=== PATIENT | female | born 1970 | race American Indian/Alaskan Native ===

== ENCOUNTER 2017-05-19 15:13 | Emergency (ER) | payer BC ==
[2017-05-19 15:28] VITALS: BMI 23.2
[2017-05-19] MEDS ORDERED: Albuterol-Ipratrop 3 mg / 0.5 (3 ml) UD IH STA (15:34)
[2017-05-19 15:39] VITALS: BP 113/66; PULSE 89; RESP 18; TEMP 97.9; O2SAT 100
--- NOTE | 2017-05-19 15:41 | ED PDOC ---
Arrival/HPI - General Chief Complaint: Shortness Of Breath Historian: Patient - History of Present Illness Narrative History of Present Illness (Text): 05/19/17 15:38 Pt is a 46 yo F with PMH of asthma and polycythemia vera presents to ED with 4 day history of shortness of breath. Pt states that she has not be able to afford a new albuterol inhaler and has been using an one. For the few days the albuterol inhaler had been somewhat controlling her symptoms. However, since last night patient has been shortness of breath with no relief despite using inhaler. Pt denies smoking, CP, n/v/d, abdominal pain, cough, fever, chills, SPANGLER, or dizziness. PMD: Russ Past Medical History - Provider Review Nursing Documentation Reviewed: Yes - Infectious Disease Hx of Infectious Diseases: None - Tetanus Immunization Tetanus Immunization: Unknown - Past Medical History Past Medical History: No Previous - Cardiac Hx Cardiac Disorders: No - Pulmonary Hx Asthma: Yes - Hematological/Oncological Other/Comment: Polycythemiavera - Psychiatric Hx Psychophysiologic Disorder: No Hx Anxiety: No Hx Bipolar Disorder: No Hx Depression: No Hx Emotional Abuse: No Hx Hallucinations: No Hx Panic Disorder: No Hx Post Traumatic Stress Disorder: No Hx Psychosis: No Hx Physical Abuse: No Hx Schizophrenia: No Hx Sexual Abuse: No Hx Substance Use: No - Past Surgical History Past Surgical History: No Previous - Anesthesia Hx Anesthesia: No Hx Anesthesia Reactions: No Hx Malignant Hyperthermia: No - Suicidal Assessment Feels Threatened In Home Enviroment: No Family/Social History - Physician Review Nursing Documentation Reviewed: Yes Family/Social History: No Known Family HX Smoking Status: Current Some Days Smoker Hx Alcohol Use: Yes Hx Substance Use: No Hx Substance Use Treatment: No Allergies/Home Meds Allergies/Adverse Reactions: Allergies aspirin Allergy (Verified 12/20/15 14:51) RASH Penicillins Allergy (Verified 12/20/15 14:51) RASH Home Medications: Home Meds Medication Instructions Recorded Confirmed Albuterol HFA [Ventolin HFA 90 0.09 mg IH PRN PRN 05/19/17 05/19/17 mcg/actuation (8 g)] Review of Systems - Physician Review All systems were reviewed & negative as marked: Yes - Review of Systems Constitutional: Normal. absent: Fatigue, Fevers Eyes: Normal ENT: Normal Respiratory: SOB, Wheezing. absent: Cough, Sputum Cardiovascular: Normal Gastrointestinal: Normal Genitourinary Female: Normal Musculoskeletal: Normal Skin: Normal Neurological: Normal Endocrine: Normal Hemo/Lymphatic: Normal Psychiatric: Normal Physical Exam Vital Signs Reviewed: Yes Vital Signs Temp Pulse Resp BP Pulse Ox 05/19/17 16:00 18 05/19/17 15:31 97.9 F 89 18 113/66 100 Temperature: Afebrile Blood Pressure: Normal Pulse: Tachycardic Respiratory Rate: Normal Appearance: Positive for: Non-Toxic Pain Distress: None Mental Status: Positive for: Alert and Oriented X 3 - Systems Exam Head: Present: Atraumatic, Normocephalic Extroacular Muscles: Present: EOMI Mouth: Present: Moist Mucous Membranes Nose (External): Present: Atraumatic Nose (Internal): Present: Normal Inspection Neck: Present: Normal Range of Motion Respiratory/Chest: Present: Wheezes (Left lower base). No: Respiratory Distress , Accessory Muscle Use, Rales, Rhonchi Cardiovascular: Present: Regular Rate and Rhythm, Normal S1, S2. No: Murmurs, Rub, Gallop Abdomen: No: Tenderness, Distention, Peritoneal Signs, Rebound, Guarding Back: Present: Normal Inspection Upper Extremity: Present: Normal Inspection Lower Extremity: Present: Normal Inspection Neurological: Present: GCS=15 Skin: Present: Warm, Dry, Normal Color Psychiatric: Present: Alert, Oriented x 3 Medical Decision Making ED Course and Treatment: 05/19/17 15:43 Assessment: 46 yo F presents to ED with shortness of breath 2/2 asthma. Plan: - CBC - CMP - Cardiac Iso - CXR - EKG - Duoneb - Prednisone EKG showed NSR, rate 96. 05/19/17 17:46 Workup unremarkable. Patient feels better after duoneb and prednisone. Advised patient to follow up with PMD upon discharge and to fill albuterol prescription from PMD and to take prednisone for 5 days daily. Impression: Asthma - Lab Interpretations Lab Results: 05/19/17 15:50 05/19/17 15:50 Lab Results 05/19/17 15:50: Sodium 141, Potassium 4.3, Chloride 103, Carbon Dioxide 25, Anion Gap 17, BUN 12, Creatinine 1.0, Est GFR ( Amer) > 60, Est GFR (Non- Af Amer) 60, Random Glucose 96, Calcium 9.9, Total Bilirubin 0.8, AST 56 H, ALT 29, Alkaline Phosphatase 48, Lactate Dehydrogenase 615, Total Creatine Kinase 50 , Troponin I < 0.01, Total Protein 7.3, Albumin 4.4, Globulin 3.0, Albumin/ Globulin Ratio 1.5 05/19/17 15:50: WBC 6.7, RBC 6.60 H, Hgb 14.1, Hct 45.7, MCV 69.2 L, MCH 21.4 L , MCHC 30.9 L, RDW 16.7 H, Plt Count 552 H, MPV 10.2, Gran % 59.3, Lymph % (Auto ) 26.0, Mcdowell % (Auto) 8.7 H, Eos % (Auto) 5.7 H, Baso % (Auto) 0.3, Gran # 3.98 , Lymph # (Auto) 1.7, Mcdowell # (Auto) 0.6, Eos # (Auto) 0.4, Baso # (Auto) 0.02 - RAD Interpretation Radiology Orders: 05/19/17 15:34 CXR [CHEST PORTABLE] [RAD] Stat - Medication Orders Current Medication Orders: Discontinued Medications Albuterol/Ipratropium (Duoneb 3 Mg/0.5 Mg (3 Ml) Ud) 3 ml IH STAT STA Stop: 05/19/17 15:35 Last Admin: 05/19/17 15:49 Dose: 3 ml Prednisone (Prednisone Tab) 40 mg PO STAT STA Stop: 05/19/17 15:35 Last Admin: 05/19/17 15:49 Dose: 40 mg Disposition/Present on Arrival - Present on Arrival Any Indicators Present on Arrival: Yes History of DVT/PE: No History of Uncontrolled Diabetes: No Urinary Catheter: No History Surgical Site Infection Following: None - Disposition Have Diagnosis and Disposition been Completed?: Yes Diagnosis: Asthma Disposition: HOME/ ROUTINE Disposition Time: 17:42 Patient Plan: Discharge Patient Problems: Current Active Problems Problem Status Onset Asthma Acute Condition: STABLE Discharge Instructions (ExitCare): Asthma, Adult (DC) Additional Instructions: 1. Follow up with PMD 2. Fill albuterol inhaler prescription and use as needed 3. Return to ED if symptoms worsen Prescriptions: Prednisone [Deltasone] 20 mg PO DAILY #5 tablet Referrals: Norah Solano MD [Primary Care Provider] - Follow up with primary Forms: [employer] (Romanian)
[2017-05-19 16:28] LABS: BASO # 0.02 K/mm3 (0.0-2.0); BASO % 0.3 % (0.0-3.0); EOS # 0.4 (0.0-0.7); EOS % 5.7 % (1.5-5.0); GRAN # 3.98 (1.4-6.5); GRAN % 59.3 % (50.0-68.0); HEMOGLOBIN 14.1 g/dL (12.0-16.0); LYMPH # 1.7 (1.2-3.4); MEAN CELL VOLUME 69.2 fl (80.0-105.0); MEAN CORPUSCULAR HEMOGLOBIN 21.4 pg (25.0-35.0); MEAN CORPUSCULAR HGB CONC 30.9 g/dl (31.0-37.0); MEAN PLATELET VOLUME 10.2 fl (7.0-11.0); MONO # 0.6 (0.1-0.6); MONO % 8.7 % (1.0-6.0); RBC 6.6 10^6/uL (3.5-6.1); RED CELL DISTRIBUTION WIDTH 16.7 % (11.5-14.5); WHITE BLOOD COUNT 6.7 10^3/ul (4.5-11.0)
[2017-05-19 16:39] LABS: ALB/GLOB RATIO 1.5 (1.1-1.8); ALBUMIN 4.4 g/dL (3.0-4.8); ALT/SGPT 29 U/L (7-56); AST/SGOT 56 U/L (14-36); BLOOD UREA NITROGEN 12 mg/dL (7-21); CALCIUM 9.9 mg/dL (8.4-10.5); GFR AFRICAN-AMERICAN > 60; GFR NON-AFRICAN AMERICAN 60
[2017-05-19 17:01] LABS: TROPONIN I < 0.01 ng/mL
--- NOTE | 2017-05-20 07:21 | RAD ---
HISTORY: dyspnea COMPARISON: No prior. FINDINGS: LUNGS: No active pulmonary disease. PLEURA: No significant pleural effusion identified, no pneumothorax apparent. CARDIOVASCULAR: Normal. OSSEOUS STRUCTURES: No significant abnormalities. VISUALIZED UPPER ABDOMEN: Normal. OTHER FINDINGS: None. IMPRESSION: No acute cardiopulmonary disease appreciated.
--- NOTE | 2017-05-20 12:35 | CARD ---
APPROVED REPORT EKG Measurement Heart [id number] <Conclusion> Normal sinus rhythm Normal ECG
== END 2017-05-19 18:06 | disposition home or self-care (01) ==
LOC: ED 15:13
DX: J45.909 Unspecified asthma, uncomplicated (principal); D45 Polycythemia vera; F17.210 Nicotine dependence, cigarettes, uncomplicated

== ENCOUNTER 2017-11-27 14:56 | Emergency (ER) | payer BC, MEDICAID ==
[2017-11-27 15:02] VITALS: BMI 23.0
[2017-11-27 15:21] VITALS: RESP 18; TEMP 98.1; O2SAT 98
[2017-11-27] MEDS ORDERED: Sodium Chloride 0.9% 1,000 ML IV STA (15:23)
[2017-11-27] MEDS ORDERED: Albuterol-Ipratrop 3 mg / 0.5 (3 ml) UD IH STA (15:23)
--- NOTE | 2017-11-27 15:27 | ED PDOC ---
Arrival/HPI - General Time Seen by Provider: 11/27/17 15:11 Historian: Patient - History of Present Illness Narrative History of Present Illness (Text): 11/27/17 15:26 47-year-old female with past medical history of polycythemia vera and asthma, works for the [employer], presents for heat exhaustion. 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 She adds that she felt like her asthma was about to come on however she did not have her inhaler with her. Reports feeling significantly better upon arrival to the emergency room due to the cooler temperature. Reports no fever, chills, headache, dizziness, shortness of breath, chest pain, nausea, vomiting, abdominal pain, recent travel, recent illness. Patient has no other complaints at this time. Past Medical History - Infectious Disease Hx of Infectious Diseases: None - Tetanus Immunization Tetanus Immunization: Unknown - Past Medical History Past Medical History: No Previous - Cardiac Hx Cardiac Disorders: No - Pulmonary Hx Asthma: Yes - Hematological/Oncological Other/Comment: Polycythemiavera - Psychiatric Hx Psychophysiologic Disorder: No Hx Anxiety: No Hx Bipolar Disorder: No Hx Depression: No Hx Emotional Abuse: No Hx Hallucinations: No Hx Panic Disorder: No Hx Post Traumatic Stress Disorder: No Hx Psychosis: No Hx Physical Abuse: No Hx Schizophrenia: No Hx Sexual Abuse: No Hx Substance Use: No - Past Surgical History Past Surgical History: No Previous - Anesthesia Hx Anesthesia: No Hx Anesthesia Reactions: No Hx Malignant Hyperthermia: No - Suicidal Assessment Feels Threatened In Home Enviroment: No Family/Social History Family/Social History: No Known Family HX Smoking Status: Current Some Days Smoker Hx Alcohol Use: Yes Hx Substance Use: No Hx Substance Use Treatment: No Allergies/Home Meds Allergies/Adverse Reactions: Allergies aspirin Allergy (Verified 11/27/17 15:19) RASH Penicillins Allergy (Verified 11/27/17 15:19) RASH Home Medications: Home Meds Medication Instructions Recorded Confirmed Albuterol HFA [Ventolin HFA 90 0.09 mg IH PRN PRN 05/19/17 11/27/17 mcg/actuation (8 g)] Review of Systems - Review of Systems Constitutional: Fatigue. absent: Weight Change, Fevers Respiratory: absent: SOB, Cough Cardiovascular: absent: Chest Pain, Palpitations Gastrointestinal: absent: Abdominal Pain, Diarrhea, Vomiting Genitourinary Female: absent: Dysuria, Frequency, Hematuria Musculoskeletal: absent: Arthralgias, Back Pain, Neck Pain Skin: absent: Rash, Pruritis, Skin Lesions Neurological: Dizziness. absent: Headache, Focal Weakness Physical Exam Vital Signs Temp Pulse Resp BP Pulse Ox 11/27/17 16:39 75 18 113/69 98 11/27/17 15:18 98.1 F 80 18 115/72 98 Temperature: Afebrile Blood Pressure: Normal Pulse: Regular Respiratory Rate: Normal Appearance: Positive for: Well-Appearing, Non-Toxic, Comfortable Pain Distress: None Mental Status: Positive for: Alert and Oriented X 3 - Systems Exam Head: Present: Atraumatic, Normocephalic Pupils: Present: PERRL Extroacular Muscles: Present: EOMI Conjunctiva: Present: Normal Mouth: Present: Dry Neck: Present: Normal Range of Motion Respiratory/Chest: Present: Clear to Auscultation, Good Air Exchange. No: Respiratory Distress, Accessory Muscle Use, Wheezes, Rales, Rhonchi Cardiovascular: Present: Regular Rate and Rhythm, Normal S1, S2. No: Murmurs, Tachycardic Abdomen: No: Tenderness, Distention, Peritoneal Signs Back: Present: Normal Inspection Upper Extremity: Present: Normal Inspection. No: Cyanosis, Edema Lower Extremity: Present: Normal Inspection. No: Edema Neurological: Present: GCS=15, CN II-XII Intact, Speech Normal, Motor Func Grossly Intact, Normal Sensory Function Skin: Present: Warm, Dry, Normal Color. No: Rashes Psychiatric: Present: Alert, Oriented x 3, Normal Insight, Normal Concentration Medical Decision Making ED Course and Treatment: 11/27/17 15:24 Plan: -- Labs -- IV fluids -- EKG -- Duoneb x1 -- Reassess and disposition EKG: NSR at 83 bpm, (-) acute ST changes, as read by PA. Labs reviewed K 3.4 Patient medicated with KCl 40 mEq po. On reevaluation, patient reports improvement of symptoms, denies any dizziness, CP, SOB or palpitations. On exam, patient remains awake alert and oriented 3 in no acute distress, she is in good spirits and is smiling. Cardiac regular rate and rhythm, abdomen soft and nontender, repeat neuro exam shows no focal findings. Based on history, exam and diagnostic results plan will be for outpatient follow up. Advised to follow up with primary care physician in 1-2 days without fail. Return to the emergency room at any time for any new or worsening symptoms. Patient states she fully agrees with and understands discharge instructions. States that she agrees with the plan and disposition. Verbalized and repeated discharge instructions and plan. I have given the patient opportunity to ask any additional questions. - Lab Interpretations Lab Results: 11/27/17 15:56 11/27/17 15:56 Lab Results 11/27/17 15:56: Sodium 144, Potassium 3.4 L, Chloride 109 H, Carbon Dioxide 22, Anion Gap 17, BUN 11, Creatinine 0.8, Est GFR ( Amer) > 60, Est GFR (Non- Af Amer) > 60, Random Glucose 66 L, Calcium 9.4, Total Bilirubin 0.6, AST 27, ALT 22, Alkaline Phosphatase 49, Total Protein 7.2, Albumin 4.5, Globulin 2.7, Albumin/Globulin Ratio 1.7 11/27/17 15:56: WBC 7.4, RBC 6.16 H, Hgb 13.0, Hct 41.9, MCV 68.0 L, MCH 21.1 L , MCHC 31.0, RDW 16.7 H, Plt Count 588 H, MPV 9.6, Gran % 68.5 H, Lymph % (Auto ) 22.8, [place] % (Auto) 6.6 H, Eos % (Auto) 1.8, Baso % (Auto) 0.3, Gran # 5.08, Lymph # (Auto) 1.7, [place] # (Auto) 0.5, Eos # (Auto) 0.1, Baso # (Auto) 0.02 - Medication Orders Current Medication Orders: Discontinued Medications Albuterol/Ipratropium (Duoneb 3 Mg/0.5 Mg (3 Ml) Ud) 3 ml IH STAT STA Stop: 11/27/17 15:24 Last Admin: 11/27/17 15:50 Dose: 3 ml Sodium Chloride (Sodium Chloride 0.9%) 1,000 mls @ 1,000 mls/hr IV .Q1H STA Stop: 11/27/17 16:22 Last Admin: 11/27/17 15:50 Dose: 1,000 mls/hr eMAR Start Stop Document 11/27/17 15:50 GMD (Rec: 11/27/17 15:50 GMD [id number]) Intravenous Solution Start Date 11/27/17 Start Time 15:50 End Date 11/27/17 End time 16:50 Total Infusion Time 60 Potassium Chloride (Potassium Chloride Oral Soln) 40 meq PO STAT STA Stop: 11/27/17 16:56 Last Admin: 11/27/17 17:05 Dose: 40 meq - 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 Disposition/Present on Arrival - Present on Arrival Any Indicators Present on Arrival: No History of DVT/PE: No History of Uncontrolled Diabetes: No Urinary Catheter: No History Surgical Site Infection Following: None - Disposition Have Diagnosis and Disposition been Completed?: Yes Diagnosis: Dehydration, Heat exhaustion Disposition: HOME/ ROUTINE Disposition Time: 17:00 Patient Plan: Discharge Condition: IMPROVED Discharge Instructions (ExitCare): Dehydration, Adult (DC), Heat Exhaustion and Heat Stroke (DC) Additional Instructions: Thank you for letting us take care of you today. You were treated for dehydration, heat exhaustion. The emergency medical care you received today was directed at your acute symptoms. Drink plenty of water, stay in cool areas, avoid being outside for too many hours in the heat. Return to the Emergency Department if your symptoms worsen, do not improve, or if you have any other problems. Please contact your doctor in 2 days for re-evaluation and follow up. Bring any paperwork you were given at discharge with you along with any medications you are taking to your follow up visit. Our treatment cannot replace ongoing medical care by a primary care provider (PCP) outside of the emergency department. Thank you for allowing the [facility] team to be part of your care today. Forms: WORK NOTE
[2017-11-27 16:00] LABS: BASO # 0.02 K/mm3 (0.0-2.0); BASO % 0.3 % (0.0-3.0); EOS # 0.1 (0.0-0.7); EOS % 1.8 % (1.5-5.0); GRAN # 5.08 (1.4-6.5); GRAN % 68.5 % (50.0-68.0); LYMPH # 1.7 (1.2-3.4); LYMPH % 22.8 % (22.0-35.0); MEAN CORPUSCULAR HEMOGLOBIN 21.1 pg (25.0-35.0); MEAN PLATELET VOLUME 9.6 fl (7.0-11.0); MONO # 0.5 (0.1-0.6); MONO % 6.6 % (1.0-6.0); RBC 6.16 10^6/uL (3.5-6.1); RED CELL DISTRIBUTION WIDTH 16.7 % (11.5-14.5); WHITE BLOOD COUNT 7.4 10^3/ul (4.5-11.0)
[2017-11-27 16:11] LABS: ALB/GLOB RATIO 1.7 (1.1-1.8); ALBUMIN 4.5 g/dL (3.0-4.8); ALT/SGPT 22 U/L (7-56); AST/SGOT 27 U/L (14-36); BLOOD UREA NITROGEN 11 mg/dL (7-21); CALCIUM 9.4 mg/dL (8.4-10.5); GFR NON-AFRICAN AMERICAN > 60
[2017-11-27 16:40] VITALS: BP 113/69; PULSE 75
[2017-11-27] MEDS ORDERED: Potassium Chloride 20 mEq/15 ml LIQ UD PO STA (16:55)
--- NOTE | 2017-11-27 19:33 | CARD ---
APPROVED REPORT Date of service: 11/27/2017 EKG Measurement Heart [id number] <Conclusion> Normal sinus rhythm Possible Left atrial enlargement Borderline ECG
== END 2017-11-27 17:27 | disposition home or self-care (01) ==
LOC: ED 14:56
DX: T67.5XXA Heat exhaustion, unspecified, initial encounter (principal); E86.0 Dehydration; D45 Polycythemia vera
CPT/HCPCS: 80053; 85025; 93005; 96360; 99283; J7030

== ENCOUNTER 2018-04-08 10:04 | Emergency (ER) | payer MEDICAID ==
[2018-04-08 10:05] VITALS: BMI 23.0
[2018-04-08 10:17] VITALS: PULSE 84; TEMP 98.3
--- NOTE | 2018-04-08 10:39 | ED PDOC ---
Arrival/HPI - General Chief Complaint: ENT Problem Time Seen by Provider: 04/08/18 10:09 Historian: Patient - History of Present Illness Narrative History of Present Illness (Text): 04/08/18 10:41 47-year-old female presents today with a 5 day history of sore throat and one day history of right eye redness. Patient denies blurred vision. No headaches dizziness or weakness. Patient is complaining of a burning pain with swallowing. Denies trismus or drooling. Denies fevers or chills. Patient's also complaining of nasal congestion and postnasal drip. Patient states when she woke up today her right eye was crusted shut and she noticed a green discharge. No medications have been taken at home. No other complaints Past Medical History - Provider Review Nursing Documentation Reviewed: Yes - Travel History Have you recently traveled outside [place] w/in the past 3 mons?: No - Infectious Disease Hx of Infectious Diseases: None - Tetanus Immunization Tetanus Immunization: Unknown - Past Medical History Past Medical History: No Previous - Cardiac Hx Cardiac Disorders: No - Pulmonary Hx Asthma: Yes - Neurological Hx Neurological Disorder: No - HEENT Hx HEENT Disorder: No - Renal Hx Renal Disorder: No - Endocrine/Metabolic Hx Endocrine Disorders: No - Hematological/Oncological Other/Comment: Polycythemiavera - Integumentary Hx Dermatological Disorder: No - Musculoskeletal/Rheumatological Hx Musculoskeletal Disorders: No - Gastrointestinal Hx Gastrointestinal Disorders: No - Genitourinary/Gynecological Hx Genitourinary Disorders: No - Psychiatric Hx Psychophysiologic Disorder: No Hx Anxiety: No Hx Bipolar Disorder: No Hx Depression: No Hx Emotional Abuse: No Hx Hallucinations: No Hx Panic Disorder: No Hx Post Traumatic Stress Disorder: No Hx Psychosis: No Hx Physical Abuse: No Hx Schizophrenia: No Hx Sexual Abuse: No Hx Substance Use: No - Past Surgical History Past Surgical History: No Previous - Surgical History Other/Comment: ovarian sx - Anesthesia Hx Anesthesia: Yes Hx Anesthesia Reactions: No Hx Malignant Hyperthermia: No - Suicidal Assessment Feels Threatened In Home Enviroment: No Family/Social History - Physician Review Nursing Documentation Reviewed: Yes Family/Social History: Unknown Family HX Smoking Status: Current Some Days Smoker Hx Alcohol Use: Yes Hx Substance Use: No Hx Substance Use Treatment: No Allergies/Home Meds Allergies/Adverse Reactions: Allergies aspirin Allergy (Verified 11/27/17 15:19) RASH Penicillins Allergy (Verified 11/27/17 15:19) RASH Home Medications: Home Meds Medication Instructions Recorded Confirmed Albuterol HFA [Ventolin HFA 90 0.09 mg IH PRN PRN 05/19/17 11/27/17 mcg/actuation (8 g)] Review of Systems - Review of Systems Constitutional: absent: Fatigue, Fevers Eyes: Other (right eye redness with green discharge). absent: Vision Changes, Photophobia ENT: Sore Throat, Sinus Congestion Respiratory: absent: SOB, Cough Cardiovascular: absent: Chest Pain, Palpitations Gastrointestinal: absent: Abdominal Pain, Nausea, Vomiting Musculoskeletal: absent: Arthralgias, Back Pain, Neck Pain Skin: absent: Rash, Pruritis Neurological: absent: Headache, Dizziness Psychiatric: absent: Anxiety, Depression Physical Exam Vital Signs Reviewed: Yes Vital Signs Temp Pulse Resp BP Pulse Ox 04/08/18 10:17 98.3 F 84 18 116/81 98 Temperature: Afebrile Blood Pressure: Normal Pulse: Regular Respiratory Rate: Normal Appearance: Positive for: Well-Appearing, Non-Toxic, Comfortable Pain Distress: None Mental Status: Positive for: Alert and Oriented X 3 - Systems Exam Head: Present: Atraumatic Pupils: Present: PERRL Extroacular Muscles: Present: EOMI Conjunctiva: Present: Injected (right eye conjunctival injection, no discharge noted. no periorbital edema or erythema or tenderness. ) Ears: Present: Normal, NORMAL TM Mouth: Present: Moist Mucous Membranes, Normal Lips, Normal Tounge, Normal Teeth. No: Drooling, Trismus Pharnyx: Present: ERYTHEMA, Other (+post nasal drip noted). No: EXUDATE, Peritonsilar Swelling, Uvular Deviation Nose (External): Present: Atraumatic Nose (Internal): Present: Normal Inspection, Clear Mucous Neck: Present: Normal Range of Motion, Trachea Midline. No: Lymphadenopathy Respiratory/Chest: Present: Clear to Auscultation, Good Air Exchange. No: Respiratory Distress, Accessory Muscle Use Cardiovascular: Present: Regular Rate and Rhythm, Normal S1, S2. No: Murmurs Neurological: Present: GCS=15 Skin: Present: Warm, Dry, Normal Color. No: Rashes Psychiatric: Present: Alert, Oriented x 3 Medical Decision Making ED Course and Treatment: 01/16/19 10:40 47-year-old female with right eye conjunctival injection since this morning and sore throat ongoing for the past 5 days pt is non toxic well appearing; no distress. stable vitals. pt started on zithromax for pharyngitis. will d/c home with tobramycin for conjunctivitis to right eye. advised f/u with pmd/ent/eye doctor. advised immediate return if symptoms worsen,persist or if new symptoms Patient verbalizes understanding of discharge instructions and need for immediate followup. IMpression: conjunctivitis, pharyngitis Tobrex: 2 drops in the affected eye 4 times daily tylenol every 4 hours as needed for pain flonase; 2 sprays each nostril once daily Zithromax daily x 4 days. Followup with the eye doctor within the next 2 days Follow up primary care physician within the next 2 days Saltwater gargles, throat lozenges Return immediately if symptoms worsen persist or if new symptoms develop; blurry vision, worsening eye pain, worsening redness or any other concerning symptoms develop. - Medication Orders Current Medication Orders: Discontinued Medications Acetaminophen (Tylenol 325mg Tab) 650 mg PO STAT STA Stop: 04/08/18 10:28 Azithromycin (Zithromax) 500 mg PO STAT STA; Protocol Stop: 04/08/18 10:28 Disposition/Present on Arrival - Present on Arrival Any Indicators Present on Arrival: No History of DVT/PE: No History of Uncontrolled Diabetes: No Urinary Catheter: No History of Decub. Ulcer: No History Surgical Site Infection Following: None - Disposition Have Diagnosis and Disposition been Completed?: Yes Diagnosis: Pharyngitis, Conjunctivitis Disposition: HOME/ ROUTINE Disposition Time: 10:37 Patient Plan: Discharge Condition: GOOD Discharge Instructions (ExitCare): Sore Throat in Adults Additional Instructions: Tobrex: 2 drops in the affected eye 4 times daily tylenol every 4 hours as needed for pain flonase; 2 sprays each nostril once daily Zithromax daily x 4 days. Followup with the eye doctor within the next 2 days Follow up primary care physician within the next 2 days Saltwater gargles, throat lozenges Return immediately if symptoms worsen persist or if new symptoms develop; blurry vision, worsening eye pain, worsening redness or any other concerning symptoms develop. Prescriptions: Azithromycin [Zithromax] 250 mg PO DAILY #4 tab Fluticasone Nasal [Flonase] 2 spr NS DAILY #1 spr Tobramycin 0.3% [Tobramycin 5 Ml] 2 drop OD QID #1 bottle Referrals: Oscar Chapin MD [Staff Provider] - Follow up with primary Kae Wang MD [Medical Doctor] - Follow up with primary Breezy Land DO [Staff Provider] - Follow up with primary [employer] [Outside] - Follow up with primary Forms: [employer] (Welsh), WORK NOTE
[2018-04-08 12:26] VITALS: BP 116/69; RESP 20; O2SAT 99
== END 2018-04-08 11:30 | disposition home or self-care (01) ==
LOC: ED 10:04
DX: J02.9 Acute pharyngitis, unspecified (principal); H10.9 Unspecified conjunctivitis